=== PATIENT | female | born 1985 | race Hispanic/Latino ===

== ENCOUNTER 2021-11-09 16:48 | Emergency (ER) | payer MEDICAID ==
[~2021-11-09] VITALS: Ht 157.5 cm; Wt 65.8 kg
[2021-11-09 16:54] VITALS: BP 105/51
[2021-11-09] MEDS ORDERED: LIDOCAINE/PRILOCAINE CREAM 5GM TUBE TP ONE (17:21)
== END 2021-11-09 18:55 | disposition home or self-care (01) ==
LOC: EDH 16:48
DX: S60.455A Superficial foreign body of left ring finger, initial encounter (principal); W45.8XXA Other foreign body or object entering through skin, initial encounter; Y93.89 Activity, other specified; Y92.89 Other specified places as the place of occurrence of the external cause; Y99.8 Other external cause status
CPT/HCPCS: 99284; J3490